=== PATIENT | male | born 1970 | race Caucasian/White ===

== ENCOUNTER 2022-08-01 00:39 | Emergency (ER) | payer SELFPAY ==
[~2022-08-01] VITALS: Ht 167.6 cm; Wt 97.9 kg
[2022-08-01 01:35] LABS: BASOPHILS % 0.7 % (0.0-2.0); EOSINOPHILS % 1.2 % (0.0-5.0); HEMATOCRIT. 44.8 % (42.0-52.0); HEMOGLOBIN. 15.2 g/dL (14.0-18.0); LYMPHOCYTES % 14.4 % (20.0-50.0); MEAN CORPUSCULAR HEMOGLOBIN 31.2 pg (28.0-32.0); MEAN CORPUSCULAR VOLUME 92.1 fL (80.0-94.0); MEAN PLATELET VOLUME 7.8 fl (7.4-10.4); MONOCYTES % 8.4 % (2.0-8.0); NEUTROPHILS % 75.3 % (40.0-76.0); PLATELET 402 x1000/uL (130-400); RED BLOOD CELL COUNT 4.86 mill/uL (4.7-6.1); RED CELL DISTRIBUTION WIDTH 14.5 % (11.6-14.6)
[2022-08-01 01:36] LABS: CHLORIDE 108 mEq/L (98-107)
[2022-08-01] MEDS ORDERED: FAMO40TA70 MT (05:07)
[2022-08-01] MEDS ORDERED: ONDA4TAB50 MT (05:07)
[2022-08-01 05:47] VITALS: BP 142/74
== END 2022-08-01 05:53 | disposition home or self-care (01) ==
LOC: ER 00:39
DX: R10.13 Epigastric pain (principal)
CPT/HCPCS: 36415; 76705; 80053; 85025; 93005; 99285